=== PATIENT | male | born 1955 | race African-American/Black ===

== ENCOUNTER 2022-09-09 09:46 | Emergency (ER) | payer MEDICARE, MEDICAID ==
[~2022-09-09] VITALS: Ht 170.2 cm; Wt 91.0 kg
[2022-09-09 12:53] LABS: BASOPHILS % 0.3 % (0.0-2.0); EOSINOPHILS % 0.5 % (0.0-5.0); HEMATOCRIT. 44.5 % (42.0-52.0); HEMOGLOBIN. 14.3 g/dL (14.0-18.0); LYMPHOCYTES % 15.4 % (20.0-50.0); MEAN CORPUSCULAR VOLUME 83.9 fL (80.0-94.0); MEAN PLATELET VOLUME 8.5 fl (7.4-10.4); MONOCYTES % 4.9 % (2.0-8.0); NEUTROPHILS % 78.9 % (40.0-76.0); PLATELET 156 x1000/uL (130-400); RED BLOOD CELL COUNT 5.31 mill/uL (4.7-6.1); RED CELL DISTRIBUTION WIDTH 14.5 % (11.6-14.6)
[2022-09-09 12:59] LABS: CHLORIDE 107 mEq/L (98-107)
[2022-09-09] MEDS ORDERED: HYDRALAZINE 20MG/ML VIAL IV ONE (13:45)
[2022-09-09] MEDS ORDERED: HYDRALAZINE 20MG/ML VIAL IV SCH (14:00)
[2022-09-09] MEDS ORDERED: ASPIRIN 81MG TABLET PO SCH (14:00)
[2022-09-09 17:59] VITALS: BP 160/71
== END 2022-09-09 18:52 | disposition short-term general hospital (02) ==
LOC: ER 09:46 → EDBEDREQSVC 12:47 → ER 18:52 → CANBEDREQ 09-10 12:15
DX: I10 Essential (primary) hypertension (principal); F20.9 Schizophrenia, unspecified; F03.90 Unspecified dementia, unspecified severity, without behavioral disturbance, psychotic disturbance, mood disturbance, and anxiety; F31.9 Bipolar disorder, unspecified; Z20.822 Contact with and (suspected) exposure to COVID-19; Z86.73 Personal history of transient ischemic attack (TIA), and cerebral infarction without residual deficits
CPT/HCPCS: 36415; 70450; 71045; 80053; 84484; 85025; 85610; 87426; 96374; 99285; C9803; J0360; Z7610